=== PATIENT | female | born 1985 | race Native Hawaiian/Other Pacific Islander ===

== ENCOUNTER 2017-10-12 18:10 | Emergency (ER) | payer OTHER ==
[~2017-10-12] VITALS: Ht 162.6 cm; Wt 84.4 kg
[2017-10-12 20:11] LABS: PLATELET COUNT 396 K/uL (152-353)
[2017-10-12 20:16] LABS: POTASSIUM 3.2 mmol/L (3.6-5.2)
[2017-10-12 20:45] VITALS: BP 149/88; TEMP 98.9
== END 2017-10-12 20:45 | disposition home or self-care (01) ==
LOC: ED 18:10
DX: G43.809 Other migraine, not intractable, without status migrainosus (principal)
CPT/HCPCS: 80053; 81000; 81025; 85027; 99284; J1100; J1200; J1885; J2405; J7120

== ENCOUNTER 2020-09-10 10:33 | Outpatient (CLI) | payer OTHER | END 2020-09-10 21:09 | disposition home or self-care (01) | LOC: RAD 10:33 | PROVIDERS: ATTEND Nurse Practitioner | DX: M54.12 Radiculopathy, cervical region (principal) ==

== ENCOUNTER 2020-12-16 08:23 | Emergency (ER) | payer OTHER ==
[~2020-12-16] VITALS: Ht 162.6 cm; Wt 84.8 kg
[2020-12-16 08:29] VITALS: BP 149/96; TEMP 97.3
== END 2020-12-16 09:45 | disposition home or self-care (01) ==
LOC: ED 08:23
DX: M54.2 Cervicalgia (principal); R20.0 Anesthesia of skin
CPT/HCPCS: 99282

== ENCOUNTER 2021-01-09 09:58 | Outpatient (CLI) | payer OTHER | END 2021-01-09 22:35 | disposition home or self-care (01) | LOC: US 09:58 | PROVIDERS: ATTEND Family Medicine | DX: E07.9 Disorder of thyroid, unspecified (principal) ==